=== PATIENT | male | born 1950 | race Caucasian/White ===

== ENCOUNTER 2017-03-26 09:30 | Inpatient (IN) | payer OTHER ==
[~2017-03-26] VITALS: Ht 167.6 cm; Wt 69.9 kg
[2017-03-28] MEDS ORDERED: ALTACE5 MG PO (10:19)
[2017-03-28] MEDS ORDERED: GLIPIZIDE10 MG PO (10:19)
[2017-03-28] MEDS ORDERED: ZOCOR20 MG PO (10:20)
[2017-03-28] MEDS ORDERED: IBUPROFEN PO (10:21)
== END 2017-04-03 14:12 | disposition home or self-care (01) | DRG 708 ==
LOC: ADM 09:30 → EDSTATUS 03-28 07:45 → ADM 03-28 07:45 → O/R 04-01 05:51 → SURH 04-01 05:51
PROVIDERS: Urology
PROC: 07TC0ZZ Resection of Pelvis Lymphatic, Open Approach (ICD-10-PCS; 2017-04-01)
PROC: 0VT00ZZ Resection of Prostate, Open Approach (ICD-10-PCS; principal; 2017-04-01 07:00)
DX: C61 Malignant neoplasm of prostate (principal)

== ENCOUNTER → 2017-04-04 | Emergency (ER) | payer OTHER ==
[~2017-04-04] VITALS: Ht 167.6 cm; Wt 68.0 kg
[~2017-04-04] MED LIST: ALTACE5 MG PO; GLIPIZIDE10 MG PO; IBUPROFEN PO; ZOCOR20 MG PO
== END ==
LOC: ER 01:38
DX: T83.091A Other mechanical complication of indwelling urethral catheter, initial encounter (principal)

== ENCOUNTER 2018-05-26 12:35 | Outpatient (CLI) | payer OTHER | END 2018-05-26 15:22 | disposition home or self-care (01) | LOC: RAD 12:35 | DX: C61 Malignant neoplasm of prostate (principal); N20.0 Calculus of kidney ==